=== PATIENT | female | born 1950 | race Caucasian/White ===

== ENCOUNTER → 2024-02-11 | Outpatient (CLI) | payer MEDICARE ==
[2024-02-11 10:41] LABS: Basophils # (A) 0.05 X 10*3/uL (0.00-0.10); Basophils % (A) 0.9 %; Eosinophils # (A) 0.11 X 10*3/uL (0.04-0.35); HCT 43.2 % (37.2-46.3); HGB 13.9 g/dL (12.0-15.0); Lymphocytes # (A) 2.06 X 10*3/uL (0.90-5.00); Lymphocytes % (A) 37.7 %; MCH 29.4 pg (27.0-32.0); MCHC 32.2 g/dL (32.0-37.0); MCV 91.3 FL (80.0-97.0); Mean Platelet Volume 9.6 FL (9.5-12.2); Monocytes # (A) 0.55 X 10*3/uL (0.20-1.00); Monocytes % (A) 10.1 %; NRBC Per 100 WBC 0 X 10*3/uL (0.00-0.01); Neutrophils # (A) 2.67 X 10*3/uL (1.80-7.70); Neutrophils % (A) 48.9 %; Platelet Count 314 X 10*3/uL (140-440); RBC 4.73 X 10*6/uL (4.10-5.20); RDW 12.8 % (11.5-14.5); WBC 5.46 X 10*3/uL (4.50-10.00)
[2024-02-11 10:43] LABS: Blood Urea Nitrogen 21.5 mg/dL (9.0-27.0); Carbon Dioxide 28.7 mmol/L (21.6-31.8); Chloride 103 mmol/L (96-109); Glucose 121 mg/dL (70-110); Potassium 5.4 mmol/L (3.5-5.5); Sodium 140 mmol/L (135-145)
== END | disposition home or self-care (01) ==
LOC: LABWHC1 07:34
PROVIDERS: ATTEND Obstetrics & Gynecology
DX: Z01.812 Encounter for preprocedural laboratory examination (principal)
CPT/HCPCS: 36415; 80051; 82565; 82947; 84520; 85025; 86850; 86900; 86901; 87086

== ENCOUNTER 2024-02-19 05:34 | Day surgery (SDC) | payer MEDICARE ==
--- NOTE | 2024-02-13 12:11 | P.HPIHPCON ---
History of Present Illness H&P Date: 02/13/24 Chief Complaint: Pelvic organ prolapse Ms. Jennings is a 73 year old who presents for surgical management of grade 3 cystocele and grade 2 uterovaginal prolapse. PVR in the office was 100mL when the cystocele was reduced. Consent for Procedure: I have explained the operation/procedure to the patient, including the risks, benefits, side effects, alternative therapies (including not receiving the proposed treatment or service), the likelihood of the patient achieving his/her goals, and potential recuperation problems for the procedure/sedation/analgesia, as well as any blood products, if indicated. I also explained to the patient the risks, benefits and side effects of the alternatives, as well as the risks related to not receiving the proposed procedure, care, treatment, or services. Surgical - Exam Focused physical exam is performed. The patient is alert and oriented. Breathing is non-labored. Abdomen is soft and non-tender. Extremities are non-tender and non-edematous. Assessment and Plan Assessment: 73 year old with grade 3 cystocele and grade 2 uterovaginal prolapse presenting for surgical management Plan: Risks, benefits, and alternatives to Total Vaginal Hysterectomy, Bilateral Salpingo-ophorectomy, Anterior Repair discussed with the patient including risk of bleeding infection, damage to surrounding structures, and post-operative VTE. All questions answered. Patient wishes to proceed with surgery as discussed.
[2024-02-19] MEDS ORDERED: LIDOCAINE 1% (10MG/ML) FOR IV START INTRADERMA PRN (05:52)
[2024-02-19 06:56] LABS: Glucose,Whole Blood 106 mg/dL (70-110)
[2024-02-19] MEDS: DEXAMETHASONE SOD PHOSPHATE 4 MG/ML 1 ML VIAL IV ONE (06:56)
[2024-02-19] MEDS: ONDANSETRON 4 MG/2 ML VIAL IVP ONE (06:56)
[2024-02-19] MEDS: LACTATED RINGERS 1,000 ML IV SCH (06:57)
[2024-02-19] MEDS: fentaNYL (PF) 50 MCG/ML 2 ML AMP IVP PRN (07:09)
[2024-02-19] MEDS: MIDAZOLAM 2 MG/2 ML VIAL IV PRN (07:09)
[2024-02-19] MEDS ORDERED: NEOSTIGMINE 1 MG/ML 10 ML VIAL ONE (07:36)
[2024-02-19] MEDS ORDERED: ROCURONIUM 10 MG/ML (5 ML VIAL) IV ONE (07:36)
[2024-02-19] MEDS ORDERED: LIDOCAINE 1% INJ 10MG/ML (20 ML MDV) ONE (07:36)
[2024-02-19] MEDS ORDERED: MORPHINE SULFATE (PF) 0.3 MG/0.3 ML SYR ONE (07:36)
[2024-02-19] MEDS ORDERED: SUCCINYLCHOLINE CHLORIDE 200 MG/10 ML VIAL IV ONE (07:36)
[2024-02-19] MEDS ORDERED: fentaNYL (PF) 50 MCG/ML 2 ML AMP ONE (07:36)
[2024-02-19] MEDS ORDERED: PROPOFOL 10 MG/ML 20 ML VIAL IV ONE (07:36)
[2024-02-19] MEDS ORDERED: GLYCOPYRROLATE 0.2 MG/ML 2 ML VIAL ONE (07:36)
[2024-02-19] MEDS: IV FLUID CONTINUATION 1,000 ML IV ONE (07:40)
[2024-02-19] MEDS: VASOPRESSIN 20 UNIT/ML 1 ML VIAL SQ ONE (08:10)
[2024-02-19] MEDS: ESTRADIOL 0.1 MG/GM VAGINAL CREAM 42.5 GM TUBE VAGINAL ONE ×2 (08:34→09:45)
[2024-02-19] MEDS: LACTATED RINGERS 1,000 ML IV ONE (09:50)
[2024-02-19] MEDS ORDERED: ONDANSETRON 4 MG/2 ML VIAL IVP PRN (10:23)
[2024-02-19] MEDS ORDERED: SIMETHICONE 80 MG CHEWABLE PO PRN (10:23)
--- NOTE | 2024-02-19 10:31 | P.OP ---
Date of Procedure: 02/19/24 Preoperative Diagnosis: 1. Grade 3 Cystocele 2. Grade 2 Uterovaginal Prolapse Postoperative Diagnosis: 1. Grade 3 Cystocele 2. Grade 2 Uterovaginal Prolapse 3. Bilateral Ovarian Masses Procedure(s) Performed: Total Vaginal Hysterectomy, Bilateral Salpingoophorectomy, Anterior Repair Implants: None Anesthesia: PALMER Surgeon: Chloe Nieto Doctor Of Osteopathy #1: Philip Chavez Estimated Blood Loss (ml): 200 Urine output (ml): 210 (clear yellow) Pathology: other (cervix, uterus, bilateral fallopian tubes, bilateral ovaries) Condition: stable Disposition: floor Indications for Procedure: Ms. Colon is a 73 year old with grade 3 cystocele and grade 2 uterovaginal prolapse presenting for surgical management. Risks, benefits, and alternatives to Total Vaginal Hysterectomy, Bilateral Salpingo-ophorectomy, Anterior Repair discussed with the patient including risk of bleeding infection, damage to surrounding structures, and post-operative VTE. All questions answered. Patient wishes to proceed with surgery as discussed. Operative Findings: Enlarged uterus with fibroids noted on the posterior wall, normal appearing bilateral fallopian tubes. Solid-appearing mass of the left ovary. Cystic, multi-loculated cyst of the right ovary. Right ovarian cyst was unintentionally ruptured while being removed from the vagina with straw-colored fluid noted. Description of Procedure: Prior to the beginning of the procedure the team paused to verify the patient's identity, as well as the procedure to be performed and the correct side/site. All equipment required was ready and available. The patient was positioned appropriately. Patient was cleaned and draped and legs were placed in lithotomy position using Quinn stirrups. Sanchez catheter was placed to drain the bladder. A weighted speculum was placed in the posterior vaginal vault. The cervix was grasped with a double-tooth tenaculum. Vasopressin was injected circumstantially around the cervix. With downward traction, a circumferential incision was made along the vaginal mucosa overlying the reflection. This allowed dissection and entrance into the posterior cul-de-sac. An 0-Vicryl suture was placed to tag the posterior peritoneum. At this time, the uterosacral ligaments were visualized. These were clamped and ligated with 0-Vicryl suture. The uterosacral ligaments were held bilaterally. The cervicovesical space was then created by both blunt and sharp dissection allowing the cardinal ligaments to be visualized. These were clamped and ligated with 0-Vicryl suture as well. Once in the cervicovesical space the uterosacral-cardinal ligament complex was completely ligated with 0-Vicryl suture. The uterine arteries were clamped and ligated with 0-Vicryl suture. The kavon clamps were moved sequentially upward on the uterus until a small adnexal pedicle remained. The anterior cul-de-sac was now entered bluntly. The uterus was inverted and the pedicles were cut. The uterine specimen was delivered and sent for pathology. Bilateral fallopian tubes were grapsed, ligated with a [id number] stitch, and cut. Bilateral uteroovarian ligaments were doubly ligated first with a transfixing 0-Vicryl suture and then reinforced with a free 0-Vicryl tie in the usual fashion. Bilateral fallopian tubes and ovaries were then ligated at the IP ligament inside the Kavon clamp, cut, and ligated with a [id number] stitch and a free tie bilaterally. During removal of the right ovary, the cystic mass was unintentionally ruptured outside of the abdominal cavity. The large weighted speculum was removed and replaced with the small weighted speculum. The peritoneal layer was closed with the 0-Vicryl suture in a purse-string fashion. A modified Lawrence Culdoplasty was performed with the uterosacral ligaments held by pieces of 0-Vicryl. The vaginal cuff inferior to the level of the Lawrence Culdoplasty was closed with 0-Vicryl suture in a running fashion. Attention was then turned to the anterior vaginal wall. Two Allis Clamps were used to grasp the vaginal mucoas and Pitressin was injected inferior to the vaginal epithelium as a means for hydro-dissection. A vertical midline incision was given from under the urethra to the level of the cuff. The underlying endopelvic fascia and cystocele was then dissected away from the vaginal epithelium using Metzenbaum scissors and allis clamps for retraction. The dissection was carried out to the lateral pelvic side wall on either side. 2-0 PDS was placed to approximate the endopelvic fascia over the cystocele, thus reducing it. Excess vaginal musosa was trimmed and the remaining vaginal mucosa was closed with 2-0 Vicryl suture. After completion of the case, a sanchez catheter was inserted and noted to move freely into the urethra without tension. Clear urine was noted to drain from the catheter. Excellent hemostasis was noted at the end of the case. The vagina was packed with 1-inch iodoform packing coated in vaginal estrace cream. All instruments were removed from the patient. She was cleaned, dried, and awakened from anesthesia without difficulty. Sponge, lap, instrument, and needle counts were correct x2. She was taken to the PACU in stable condition.
--- NOTE | 2024-02-19 10:40 | P.ANPRN ---
Procedure Note - Anesthesia - Epidural/Spinal Spinal Time Out Performed: Yes Date of Procedure: 02/19/24 Procedure Start Time: : Procedure Stop Time: 07:15 Location of Patient: PreOp Indication: Acute Post-Operative Pain Sedation Type: Sedate with meaningful contact maintained Preparation: Sterile Prep Position: Sitting Catheter: None Needle Guage: 25 Narrative: After the informed consent was obtained and all the questions answered, Patient was positioned in sitting posture. The back was cleaned and draped after palpating the L3-L4 interspace. 3 mL of 1% lidocaine infiltrated into the aforementioned space. A 25-gauge Whittacre needle was introduced into the space and a clear flow of CSF was obtained. No blood was aspirated. 300 g of Duramorph and 25 g fentanyl drawn up with a Filter Needle and injected into the spinal space under aseptic precautions. Needle was withdrawn and the puncture laureen with a platelet dressed with Band-Aid. Patient tolerated the procedure very well with no apparent complications noted. Blood Aspirated: No Pain Paresthesia on Injection Noted: No Events: Uneventful and Well Tolerated
[2024-02-19 10:50] LABS: Glucose,Whole Blood 147 mg/dL (70-110)
[2024-02-19] MEDS: HYDROmorphone 0.5 MG/0.5 ML SYRINGE IVP PRN (10:54)
[2024-02-19] MEDS: ACETAMINOPHEN IV (For NPO) 1,000 MG in EMPTY BAG 1 BAG IVPB ONE (12:03)
[2024-02-19] MEDS: diphenhydrAMINE 50 MG/ML 1 ML VIAL IVP PRN (14:40)
[2024-02-20] MEDS: IBUPROFEN 600 MG TAB PO PRN (00:37)
[2024-02-20] MEDS: ACETAMINOPHEN TAB 325 MG TAB PO PRN (05:54)
[2024-02-20 06:03] LABS: Basophils % (A) 0 %; Eosinophils % (A) 0 %; HCT 34.4 % (34.0-46.0); HGB 11.4 gm/dL (11.4-16.0); Lymphocytes # (A) 1.1 k/uL (1.0-4.8); Lymphocytes % (A) 10 %; MCH 30.6 pg (25.0-35.0); MCHC 33.1 g/dL (31.0-37.0); MCV 92.5 fL (80.0-100.0); Mean Platelet Volume 7.7; Monocytes # (A) 0.6 k/uL (0-1.0); Monocytes % (A) 5 %; Neutrophils # (A) 9.4 k/uL (1.3-7.7); Neutrophils % (A) 84 %; Platelet Count 243 k/uL (150-450); RBC 3.72 m/uL (3.80-5.40); RDW 13.3 % (11.5-15.5); WBC 11.2 k/uL (3.8-10.6)
--- NOTE | 2024-02-20 07:19 | P.PN ---
Progress Note - Text 02/20/24 613am 73-year-old female status post vaginal hysterectomy with spinal Duramorph. Patient seen and evaluated, patient has a VAS of 0 with no complaint of nausea vomiting or pruritus. Doing very well
[2024-02-20 08:16] VITALS: BP 97/55; PULSE 91; RESP 16; TEMP 98.2
--- NOTE | 2024-02-20 12:14 | P.DS ---
Providers Date of admission: 02/19/2024 Expected date of discharge: 02/20/24 Attending physician: Chloe Nieto MD Primary care physician: [facility] Course: Ms. Colon is a 73 year old female POD#1 s/p total vaginal hysterectomy, bilateral salpingoophorectomy, and anterior repair. She is doing well this morning and desires discharge home. She has no complaints this morning. She reports minimal lochia, passing flatus, voiding without difficulty, ambulating, and eating/drinking without nausea or vomiting. She denies chest pain, shortness of breathing, fevers, or chills overnight. She denies pain or swelling in the l egs. Postoperative restrictions are reviewed with the patient including pelvic rest for 6 weeks, no lifting heavier than 15 pounds for 6 weeks. The patient is encouraged to call the office if she experiences any heavy bleeding, foul- smelling discharge, breast complaints, or any if she has any other concerns. She will follow up in the office with in 6 weeks for postoperative exam. All questions are answered. Assessment: 73 year old POD#1 s/p TVH, BSO, anterior repair Patient Condition at Discharge: Good Plan - Discharge Summary Discharge Rx Participant: No New Discharge Prescriptions: No Action Multivitamins, Thera [Multivitamin (formulary)] 1 tab PO DAILY metFORMIN HCL 500 mg PO DAILY Calcium/Vitd 1 tab PO DAILY Discharge Medication List Calcium/Vitd 1 tab PO DAILY 02/13/24 [History] Multivitamins, Thera [Multivitamin (formulary)] 1 tab PO DAILY 02/13/24 [History] metFORMIN HCL 500 mg PO DAILY 02/13/24 [History] Follow up Appointment(s)/Referral(s): Chloe Nieto MD [STAFF PHYSICIAN] - 03/30/24 8:30 am Activity/Diet/Wound Care/Special Instructions: Postoperative Instructions 1. No heavy lifting or straining (exercising) until after 6 week checkup. 2. Do not resume sexual relations for 6 weeks or longer if uncomfortable. 3. Keep abdominal incision clean and dry: You may wear a dressing if more comfortable. 4. Keep any areas repaired with stitches clean and dry. 5. Call the office, , within the next week to make appointment for your 2 week checkup 6. Report any of the following occurrences to the doctor promptly: a. Heavy, excessive bleeding b. Chills, fever c. Burning or frequency of urination d. Pain or redness around the incisions Discharge Disposition: HOME SELF-CARE
[2024-02-20] MEDS ORDERED: ACETAMINOPHEN TAB 325 MG TAB PO PRN (17:00)
== END 2024-02-20 12:22 | disposition home or self-care (01) ==
LOC: OR 05:34 → 4FBP 09:49 → OR 02-20 12:22
PROVIDERS: ATTEND Obstetrics & Gynecology
DX: N81.10 Cystocele, unspecified (principal); N81.4 Uterovaginal prolapse, unspecified
CPT/HCPCS: 85025; 88108; 88305